=== PATIENT | female | born 1940 | race Caucasian/White ===

== ENCOUNTER 2018-03-03 14:54 | Inpatient (IN) | payer MEDICARE, OTHER ==
[2018-03-03] MEDS: LACTATED RINGER'S 1,000 ML IV (15:55)
[2018-03-03] MEDS: ONDANSETRON 4 MG INJ IV ×3 (15:55→21:05)
[2018-03-03] MEDS: HYDROmorphONE 1 MG/5 ML IV SYRINGE IV ×3 (15:55→18:05)
[2018-03-03 16:08] LABS: ADD MAN DIFF? NO; BASOPHIL # 0.1 10^3/ul (0.0-0.1); BASOPHILS % 0.4 % (0.0-2.0); HEMOGLOBIN 10.6 g/dl (12.0-16.0); LYMPHOCYTES # 0.9 10^3/ul (0.8-2.9); LYMPHOCYTES % 6.8 % (15.0-51.0); MEAN CORPUSCULAR HEMOGLOBIN 24.1 pg (29.0-33.0); MEAN CORPUSCULAR HGB CONC 31.2 g/dl (32.0-37.0); MEAN CORPUSCULAR VOLUME 77.4 fl (82.0-101.0); MEAN PLATELET VOLUME 10.3 fl (7.4-10.4); MONOCYTE # 0.3 10^3/ul (0.3-0.9); MONOCYTES % 2.5 % (0.0-11.0); NEUTROPHIL # 12.3 10^3/ul (1.6-7.5); NEUTROPHILS % 88.9 % (39.0-77.0); PLATELET COUNT 354 10^3/UL (140-415); RED BLOOD COUNT 4.39 10^6/ul (4.20-5.40); RED CELL DISTRIBUTION WIDTH 18.7 % (11.5-14.5)
[2018-03-03 16:08] LABS: WHITE BLOOD COUNT 13.8 10^3/ul (4.8-10.8)
[2018-03-03 16:32] LABS: INR 0.83; PROTIME 11.5 Sec (11.9-14.9); PT RATIO 0.9
[2018-03-03 16:33] LABS: PARTIAL THROMBOPLASTIN TIME 23.5 Sec (25.0-35.0)
[2018-03-03 16:37] LABS: ALANINE AMINOTRANSFERASE 20 IU/L (13-69); ALBUMIN 4.3 g/dl (3.3-4.9); ALBUMIN/GLOBULIN RATIO 1.53; ALKALINE PHOSPHATASE 52 IU/L (42-121); ANION GAP 19 (8-16); ASPARTATE AMINO TRANSFERASE 28 IU/L (15-46); BILIRUBIN,INDIRECT 0.3 mg/dl (0-1.1); BILIRUBIN,TOTAL 0.3 mg/dl (0.2-1.3); BLOOD UREA NITROGEN 26 mg/dl (7-20); CALCIUM 9.4 mg/dl (8.4-10.2); CARBON DIOXIDE 19 mmol/L (21-31); CHLORIDE 107 mmol/L (97-110); CREATININE 0.95 mg/dl (0.44-1.00); GLUCOSE 114 mg/dl (70-220); LIPASE 109 U/L (23-300); POTASSIUM 3.8 mmol/L (3.5-5.1); SODIUM 141 mmol/L (135-144); TOTAL PROTEIN 7.1 g/dl (6.1-8.1)
[2018-03-03 16:49] LABS: TROPONIN-I < 0.012 ng/ml (0.00-0.12)
[2018-03-03] MEDS ORDERED: ACETAMINOPHEN 325 MG TAB PO ×2 (17:30→18:30)
[2018-03-03] MEDS ORDERED: ONDANSETRON 4 MG INJ IV (18:30)
[2018-03-03] MEDS ORDERED: NITROGLYCERIN (SL) 0.4 MG TAB SL (18:30)
[2018-03-03] MEDS ORDERED: MAGNESIUM HYDROXIDE 30ML CUP PO (18:30)
[2018-03-03] MEDS ORDERED: NACL 0.9% 3 ML SYG IV (18:30)
[2018-03-03] MEDS ORDERED: NA PHOSPHATE/BIPHOS 133 ML ENEMA PR (18:30)
[2018-03-03] MEDS ORDERED: ALBUTEROL/IPRATROPIUM (NEB) 3 ML AMP HHN (18:30)
[2018-03-03] MEDS ORDERED: hydrALAzine 20 MG INJ IV (18:30)
[2018-03-03] MEDS ORDERED: DOCUSATE SODIUM 100 MG CAP PO (18:30)
[2018-03-03 19:25] LABS: FREE T4 (FREE THYROXINE) 1.38 ng/dl (0.78-2.44)
[2018-03-03] MEDS ORDERED: RABEPRAZOLE SODIUM 20 MG PO (21:00)
[2018-03-03] MEDS ORDERED: SUVOREXANT 20 MG PO (21:00)
[2018-03-03] MEDS: HEPARIN 5,000 UNIT/0.5 ML VIAL SC (21:06)
[2018-03-03] MEDS: SOD CHLORIDE 0.45% 1,000 ML IV (21:07)
[2018-03-03] MEDS: morphine 2 MG INJ IV (21:09)
[2018-03-03] MEDS: ATORVASTATIN 10 MG TAB PO (22:00)
[2018-03-03] MEDS: HYDROCODONE/APAP (5/325) TAB PO (22:21)
[2018-03-03 22:43] LABS: PROTIME 12.2 Sec (11.9-14.9)
[2018-03-03 22:44] LABS: PARTIAL THROMBOPLASTIN TIME 25.7 Sec (25.0-35.0)
[2018-03-03] MEDS: LORAZEPAM 2 MG INJ IV (23:21)
[2018-03-04 05:04] LABS: ADD MAN DIFF? NO
[2018-03-04 05:07] LABS: BASOPHILS % 0.4 % (0.0-2.0); EOSINOPHILS % 0.2 % (0.0-7.0); HEMATOCRIT 31.1 % (37.0-47.0); HEMOGLOBIN 9.3 g/dl (12.0-16.0); LYMPHOCYTES % 18.1 % (15.0-51.0); MEAN CORPUSCULAR HEMOGLOBIN 23.8 pg (29.0-33.0); MEAN CORPUSCULAR HGB CONC 29.9 g/dl (32.0-37.0); MEAN CORPUSCULAR VOLUME 79.5 fl (82.0-101.0); MEAN PLATELET VOLUME 10.7 fl (7.4-10.4); MONOCYTES % 9.2 % (0.0-11.0); NEUTROPHIL # 7.9 10^3/ul (1.6-7.5); NEUTROPHILS % 70.9 % (39.0-77.0); PLATELET COUNT 303 10^3/UL (140-415); RED BLOOD COUNT 3.91 10^6/ul (4.20-5.40)
[2018-03-04 05:07] LABS: WHITE BLOOD COUNT 11.2 10^3/ul (4.8-10.8)
[2018-03-04] MEDS: PANTOPRAZOLE (EC) 40 MG TAB PO (05:28)
[2018-03-04 05:30] LABS: CHOLESTEROL 205 mg/dl (100-200)
[2018-03-04 05:30] LABS: TRIGLYCERIDES 66 mg/dl (0-149)
[2018-03-04 05:33] LABS: ANION GAP 10 (8-16); BLOOD UREA NITROGEN 23 mg/dl (7-20); CALCIUM 8.4 mg/dl (8.4-10.2); CARBON DIOXIDE 30 mmol/L (21-31); CHLORIDE 107 mmol/L (97-110); CREATININE 0.82 mg/dl (0.44-1.00); GLUCOSE 87 mg/dl (70-220); MAGNESIUM 1.6 mg/dl (1.7-2.5); PHOSPHORUS 3.9 mg/dl (2.5-4.9); POTASSIUM 4.1 mmol/L (3.5-5.1); SODIUM 143 mmol/L (135-144)
[2018-03-04 05:43] LABS: CHOL/HDL RATIO 1.7 RATIO; HDL CHOLESTEROL 120 mg/dl (33-92); LDL CHOLESTEROL,CALCULATED 72 mg/dl
[2018-03-04] MEDS: morphine 2 MG INJ IV (08:40)
[2018-03-04] MEDS: VENLAFAXINE (XR) 75 MG CAP PO (08:46)
[2018-03-04] MEDS: CALCIUM/VITAMIN D (500/200) TAB PO (08:46)
[2018-03-04] MEDS: CHOLECALCIFEROL 2,000 UNIT CAP PO (08:46)
[2018-03-04] MEDS: LOSARTAN 50 MG TAB PO (08:47)
[2018-03-04] MEDS: AMLODIPINE 10 MG TAB PO (08:47)
[2018-03-04] MEDS: POTASSIUM CHLORIDE (SR) 10 MEQ TAB PO (08:47)
[2018-03-04] MEDS: METOPROLOL (XL) 25 MG TAB PO (08:48)
[2018-03-04] MEDS: SOD CHLORIDE 0.45% 1,000 ML IV (10:20)
[2018-03-04] MEDS: MAGNESIUM SULFATE 1 GM/D5W 100 ML IVPB (12:04)
[2018-03-04] MEDS: HEPARIN 5,000 UNIT/0.5 ML VIAL SC (12:11)
[2018-03-04] MEDS: predniSONE 1 MG TAB PO (12:58)
[2018-03-04] MEDS: predniSONE 5 MG TAB PO (12:58)
== END 2018-03-04 17:10 | disposition home or self-care (01) | DRG 552 ==
LOC: E/R 14:54 → MS1 17:26
DX: M54.16 Radiculopathy, lumbar region (principal); S39.012D Strain of muscle, fascia and tendon of lower back, subsequent encounter; M43.17 Spondylolisthesis, lumbosacral region; I10 Essential (primary) hypertension; M06.9 Rheumatoid arthritis, unspecified; E78.00 Pure hypercholesterolemia, unspecified; Z85.3 Personal history of malignant neoplasm of breast; X58.XXXD Exposure to other specified factors, subsequent encounter
CPT/HCPCS: 36415; 80048; 80053; 80061; 83036; 83690; 83735; 84100; 84439; 84443; 84484; 85025; 85610; 85730; 93005; 93306; 96372; 96374; 96375; 96376; 97161; 97167; 99285-25